=== PATIENT | male | born 1965 | race Caucasian/White ===

== ENCOUNTER 2017-01-18 23:21 | Emergency (ER) | payer SELFPAY ==
[2017-01-18 23:33] VITALS: BP 132/97; PULSE 85; RESP 18; TEMP 98.5; O2SAT 98
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
[2017-01-19] MEDS ORDERED: DIPHTH/TETANUS/ACEL PERTUSSIS (BOOSTER) 0.5 ML VIAL/PFS IM ONE (00:15)
[2017-01-19 00:28] VITALS: O2SAT 96
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
[2017-01-19] MEDS ORDERED: BACT800T5 PO (01:39)
== END 2017-01-19 06:42 | disposition home or self-care (01) ==
LOC: NEPE 23:21 → NEPD 01-19 06:42
DX: S01.112A Laceration without foreign body of left eyelid and periocular area, initial encounter (principal); F10.129 Alcohol abuse with intoxication, unspecified; W19.XXXA Unspecified fall, initial encounter; Z23 Encounter for immunization
CPT/HCPCS: 12011; 70450; 72125; 90471; 90715